=== PATIENT | male | born 1980 | race Caucasian/White ===

== ENCOUNTER 2021-10-17 12:57 | Emergency (ER) | payer BC ==
[~2021-10-17] VITALS: Ht 170.2 cm; Wt 87.7 kg
[2021-10-17] MEDS ORDERED: fentaNYL PF VIAL 100 MCG/2 ML VIAL IVP ONE (16:45)
[2021-10-17] MEDS ORDERED: ONDANSETRON PF 4 MG/2 ML VIAL. IVP ONE (16:45)
--- NOTE | 2021-10-17 16:54 | PHYS DOC ---
Past Medical History Past Medical History: Diverticulitis (KRISHNA KLINE APRN) Past Surgical History: Other Additional Past Surgical Histo: FOOT (KRISHNA KLINE APRN) Smoking Status: Never Smoker Alcohol Use: Rarely Drug Use: None (KRISHNA KLINE APRN) General Adult EDM: Chief Complaint: ABDOMINAL PAIN HPI: HPI: Patient is a 41-year-old male that presents today with abdominal pain. Patient states for the last 24 hours he has had severe abdominal pain mostly in the left sided, patient states he feels this is because from drinking on Marlene, he says he has had nausea and vomiting associated with that along with blood in his stool and mucus in his stool. But after speaking with the patient further he states that he has had blood in his stool for well over 3 weeks and has had slight abdominal pain as well. Patient states a number of years ago he was diagnosed with diverticulitis, but he moved from [place] to [place] and has not had a GI specialist since that time. Patient states that he feels like the last 24 hours she is also run a fever. Patient denies chest pain or shortness of air. (KRISHNA KLINE APRN) Review of Systems: Review of Systems: Constitutional: fever or chills. [] Eyes: Denies change in visual acuity. [] HENT: Denies nasal congestion or sore throat. [] Respiratory: Denies cough or shortness of breath. [] Cardiovascular: Denies chest pain or edema. [] GI: abdominal pain, nausea, vomiting, bloody stools [] : Denies dysuria. [] Musculoskeletal: Denies back pain or joint pain. [] Integument: Denies rash. [] Neurologic: Denies headache, focal weakness or sensory changes. [] Endocrine: Denies polyuria or polydipsia. [] Lymphatic: Denies swollen glands. [] Psychiatric: Denies depression or anxiety. [] (KRISHNA KLINE APRN) Heart Score: C/O Chest Pain: N/A Risk Factors: Risk Factors: DM, Current or recent (<one month) smoker, HTN, HLP, family history of CAD, obesity. Risk Scores: Score 0 - 3: 2.5% MACE over next 6 weeks - Discharge Home Score 4 - 6: 20.3% MACE over next 6 weeks - Admit for Clinical Observation Score 7 - 10: 72.7% MACE over next 6 weeks - Early Invasive Strategies (KRISHNA KLINE SUPERVISOR HARDBOARD) Current Medications: Current Medications Medications (Trade) Dose Ordered Sig/Dorina Start Time Stop Time Status Last Admin Dose Admin Fentanyl Citrate (Fentanyl 2ml Vial) 50 mcg 1X ONCE 10/17/21 16:45 10/17/21 16:46 DC Iohexol (Omnipaque 300 Mg/ml) 75 ml 1X ONCE 10/17/21 17:00 10/17/21 17:01 Ondansetron HCl (Zofran) 4 mg 1X ONCE 10/17/21 16:45 10/17/21 16:46 DC Sodium Chloride 1,000 ml @ 999 mls/hr 1X ONCE 10/17/21 17:00 10/17/21 18:00 (KRISHNA KLINE APRN) Allergies: Allergies: Allergies Coded Allergies Type Severity Reaction Last Updated Verified No Known Drug Allergies 10/17/21 No (KRISHNA KLINE APRN) Physical Exam: PE: Constitutional: Well developed, well nourished, mild distress, non-toxic appearance. [] HENT: Normocephalic, atraumatic, bilateral external ears normal, oropharynx moist, no oral exudates, nose normal. [] Eyes: PERRLA, EOMI, conjunctiva normal, no discharge. [] Neck: Normal range of motion, no tenderness, supple, no stridor. [] Cardiovascular:Heart rate regular rhythm, no murmur [] Lungs & Thorax: Bilateral breath sounds clear to auscultation [] Abdomen: Bowel sounds hypoactive, pain with palpation on the left abdominal area both upper and lower quadrants. No pulsatile masses or masses noted with palpation. Rectal exam done Hemoccult sent for analysis. Skin: Warm, dry, no erythema, no rash. [] Back: No tenderness, no CVA tenderness. [] Extremities: No tenderness, no cyanosis, no clubbing, ROM intact, no edema. [] Neurologic: Alert and oriented X 3, normal motor function, normal sensory function, no focal deficits noted. [] Psychologic: Affect normal, judgement normal, mood normal. [] (KRISHNA KLINE SUPERVISOR HARDBOARD) Current Patient Data: Labs: Laboratory Tests Test 10/17/21 16:36 10/17/21 16:50 10/17/21 19:16 White Blood Count 3.0 x10^3/uL Red Blood Count 4.47 x10^6/uL Hemoglobin 12.5 g/dL Hematocrit 36.6 % Mean Corpuscular Volume 82 fL Mean Corpuscular Hemoglobin 28 pg Mean Corpuscular Hemoglobin Concent 34 g/dL Red Cell Distribution Width 14.1 % Platelet Count 143 x10^3/uL Neutrophils (%) (Auto) 72 % Lymphocytes (%) (Auto) 10 % Monocytes (%) (Auto) 18 % Eosinophils (%) (Auto) 0 % Basophils (%) (Auto) 0 % Neutrophils # (Auto) 2.2 x10^3/uL Lymphocytes # (Auto) 0.3 x10^3/uL Monocytes # (Auto) 0.6 x10^3/uL Eosinophils # (Auto) 0.0 x10^3/uL Basophils # (Auto) 0.0 x10^3/uL Segmented Neutrophils % 74 % Band Neutrophils % 3 % Lymphocytes % 5 % Monocytes % 18 % Platelet Estimate Adequate Stool Occult Blood Positive Sodium Level 136 mmol/L Potassium Level 4.0 mmol/L Chloride Level 97 mmol/L Carbon Dioxide Level 28 mmol/L Anion Gap 11 Blood Urea Nitrogen 13 mg/dL Creatinine 1.0 mg/dL Estimated GFR (Cockcroft-Gault) 81.9 BUN/Creatinine Ratio 13 Glucose Level 95 mg/dL Calcium Level 8.1 mg/dL Total Bilirubin 0.7 mg/dL Aspartate Amino Transf (AST/SGOT) 36 U/L Alanine Aminotransferase (ALT/SGPT) 69 U/L Alkaline Phosphatase 71 U/L Total Protein 7.6 g/dL Albumin 3.6 g/dL Albumin/Globulin Ratio 0.9 Lipase 50 U/L Urine Collection Type Unknown Urine Color Yellow Urine Clarity Clear Urine pH 6.0 Urine Specific [place] >=1.030 Urine Protein Negative mg/dL Urine Glucose (UA) Negative mg/dL Urine Ketones (Stick) Trace mg/dL Urine Blood Negative Urine Nitrite Negative Urine Bilirubin Negative Urine Urobilinogen Dipstick 0.2 mg/dL Urine Leukocyte Esterase Negative Urine RBC 0 /HPF Urine WBC Occ /HPF Urine Squamous Epithelial Cells Occ /LPF Urine Bacteria 0 /HPF Urine Mucus Slight /LPF Current Medications Medications (Trade) Dose Ordered Sig/Dorina Route PRN Reason Start Time Stop Time Status Last Admin Dose Admin Sodium Chloride 1,000 ml @ 999 mls/hr 1X ONCE IV 10/17/21 17:00 10/17/21 18:00 DC 10/17/21 17:09 Fentanyl Citrate (Fentanyl 2ml Vial) 50 mcg 1X ONCE IVP 10/17/21 16:45 10/17/21 16:46 DC 10/17/21 17:09 Ondansetron HCl (Zofran) 4 mg 1X ONCE IVP 10/17/21 16:45 10/17/21 16:46 DC 10/17/21 17:09 Iohexol (Omnipaque 300 Mg/ml) 75 ml 1X ONCE IV 10/17/21 17:00 10/17/21 17:01 DC 10/17/21 18:32 Ketorolac Tromethamine (Toradol 30mg Vial) 30 mg 1X ONCE IVP 10/17/21 19:30 10/17/21 19:31 DC 10/17/21 19:20 Vital Signs: Vital Signs Date Time Temp Pulse Resp B/P (MAP) Pulse Ox O2 Delivery O2 Flow Rate FiO2 10/17/21 20:02 88 19 106/56 (73) 96 Room Air 10/17/21 19:32 90 22 111/63 (79) 94 Room Air 10/17/21 19:02 92 20 138/81 (100) 95 Room Air 10/17/21 18:41 93 18 138/96 (110) 95 Room Air 10/17/21 18:02 92 30 131/80 (97) 90 Room Air 10/17/21 17:32 92 24 135/80 (98) Room Air 10/17/21 17:09 16 98 10/17/21 17:02 92 19 135/82 (99) 96 Room Air 10/17/21 16:32 98 147/90 (109) 93 Room Air 10/17/21 16:26 100.9 94 20 144/74 (97) 97 Room Air 100.9 Vital Signs Date Time Temp Pulse Resp B/P (MAP) Pulse Ox O2 Delivery O2 Flow Rate FiO2 10/17/21 16:26 100.9 94 20 144/74 (97) 97 Room Air 100.9 (KRISHNA KLINE SUPERVISOR HARDBOARD) EKG: EKG: [] (KRISHNA KLINE SUPERVISOR HARDBOARD) Radiology/Procedures: Radiology/Procedures: REASON: abdominal pain with fever;OMNI 300, 75ML PROCEDURE: CT ABD PELV W/ IV CONTRST ONLY Exam Date: 10/17/2021 6:[address] ABDOMEN+PELVIS W Indication: Reason: abdominal pain with fever;OMNI 300, 75ML / Spl. Instructions: / History: . TECHNIQUE: CT examination of the abdomen and pelvis was performed following the administration of nonionic intravenous contrast. One or more of the following dose reduction techniques were utilized: *Automated exposure control (AEC) *Adjustment of mA and/or kV according to patient size *Use of iterative reconstruction technique *CT scan done according to ALARA, or ALARA/IMAGE GENTLY FINDINGS: The visualized lung bases demonstrate mild dependent atelectasis bilaterally. The liver, gallbladder, spleen, pancreas, adrenal glands and kidneys are normal. Urinary bladder is normal in appearance. There is no bowel obstruction or inflammation. The appendix is normal. As a small fat-containing left inguinal hernia. No significant atherosclerotic calcifications are seen. No lymphadenopathy or ascites is seen. Osseous structures are intact. IMPRESSION: No evidence of acute intra-abdominal pathology. Electronically signed by: Kevin Montoya MD (10/17/2021 7:29 PM) [facility][] (KRISHNA KLINE SUPERVISOR HARDBOARD) Course & Med Decision Making: Course & Med Decision Making Pertinent Labs and Imaging studies reviewed. (See chart for details) [1950 patient informed that laboratory and radiologic [place] results did not show any acute process. Patient does state after speaking with him that he does have a history of internal hemorrhoids, I told him that they may be irritated and I will refer him to Dr. Martinez with GI for further management of this. Patient also states he has been coughing and running a low-grade fever we will test him for COVID-19 with the PCR patient is informed to quarantine until he gets results back. Patient informed to stick with clear liquids for the next 12 to 24 hours then advance to a brat diet then advance as tolerated. Patient verbalizes understanding of discharge instructions and is okay with going home. (KRISHNA KLINE SUPERVISOR HARDBOARD) Dragon Disclaimer: Dragon Disclaimer: This electronic medical record was generated, in whole or in part, using a voice recognition dictation system. (KRISHNA KLINE APRN) Departure Departure Impression: Primary Impression: Abdominal pain Qualified Codes: R10.9 - Unspecified abdominal pain Disposition: HOME / SELF CARE / HOMELESS Condition: STABLE Referrals: IRENE DUPREE MD (PCP) CHAPITO REY MD Patient Instructions: Abdominal Pain (Nonspecific) Additional Instructions: Clear liquid diet for the next 12 to 24 hours, then advance to a brat diet for the next 12 to 24 hours and then advance as tolerated. Make sure you stay well- hydrated while feeling unwell. Tylenol and/or ibuprofen as needed for fever and pain. Follow-up with your primary care physician or GI specialist this week for furthe r management of your abdominal pain. Return to the emergency department for increased abdominal pain. Increased blood in your stool, or any other concerns you may have. You have been tested for or diagnosed with COVID-19. It is an infection caused by a new type of coronavirus. COVID-19 will cause cold-like or mild flu symptoms in most. It can cause more severe symptoms like problems breathing in some. There is no treatment for COVID-19. The body will clear the infection over time. Self-care will help to ease discomfort. Steps to Take: Self-Care Rest as needed. Healthy habits may help you feel better. Steps include: Choose healthy foods including fruits and vegetables. Drink water throughout the day. Get plenty of sleep each night. If you smoke, try to quit. It may ease breathing. Avoid alcohol. Keep Others Healthy The virus can spread to others. Droplets are released every time you sneeze or cough. The droplets can get into the mouth, nose, or eyes of people near you and lead to infection. To lower the chances of spreading COVID-19 to others: Stay at home until your doctor has said it is safe to leave. If you tested positive this will mean staying isolated until both of the following are true: At least 10 days have passed since the start of illness. You are free of fever for at least 72 hours without the use of medicine. During this time: - Avoid public areas, events, or transportation. Do not return to work or school until your doctor has said it is safe to do so. - Call ahead if you need to go to a medical center. Let them know you may have COVID-19. It will help them guide you where to go. They may also ask you to wear a facemask when you come to the office. - If you call for emergency medical services, let them know you may have COVID-19. While at home: - Try to avoid close contact with others. Stay about 6 feet away. - If possible, spend most of your time in a separate room from others. - Use a face mask if you will be in close contact with others such as sharing a room or vehicle. - Have someone wipe down common surfaces in the home. Use household wire communications engineer every day on areas like doorknobs, counters, or sinks. - Cough or sneeze into a tissue. Throw the tissue away right after use. If a tissue is not available, cough or sneeze into your elbow. - Wash your hands often. Wash them after sneezing or coughing. Use soap and water and wash for at least 20 seconds. Alcohol based hand cleaner and polisher can be used if soap and water is not available. - Do not prepare food for others. Avoid sharing personal items like forks, spoons, or toothbrushes. - Avoid close contact with pets while you are sick. There is no evidence of the virus passing to pets. This is a safety step until more is known about this virus. Isolation can be frustrating. Social interaction can help. Keep in touch with friends and family through phone and tech options. You can still interact with others in your home, just keep a safe distance of about 6 feet. Follow-up: Your doctors office will check in with you to see if there are any changes in your health. You may be asked to keep track of symptoms to share with them. They will also let you know when you are clear to be in public again. Problems to Look Out For: Contact your doctor if your recovery is not going as you expect. Get emergency care if you have problems such as: - Trouble breathing - Nonstop chest pain or pressure - Changes in awareness, confusion, or problems waking - Lips or face have bluish color - Worsening of symptoms If you think you have an emergency, call for emergency medical services right away. As taken from [facility] Attending Signature Attending Signature I have reviewed the PA/WARE CARRIER's note and plan of care. I was available for consultation as needed during the patient's visit in the emergency department. I agree with the clinical impression, plan, and disposition. (CLARICE EVANS DO) KRISHNA KLINE APRN Oct 17, 2021 16:54 CLARICE EVANS DO Oct 18, 2021 00:31
[2021-10-17] MEDS ORDERED: IOHEXOL 300 MG/ML 100ML VIAL. IV ONE (17:00)
[2021-10-17] MEDS ORDERED: IV NORMAL SALINE 1000ML BAG 1,000 ML IV ONE (17:00)
[2021-10-17 17:11] LABS: FECAL OB PT POSITIVE (NEG)
[2021-10-17 17:17] LABS: BASO % 0 % (0-3); EOS % 0 % (0-3); HEMATOCRIT 36.6 % (39.0-53.0); HEMOGLOBIN 12.5 g/dL (13.0-17.5); LYMPH # 0.3 x10^3/uL (1.0-4.8); LYMPH % 10 % (24-48); MEAN CORPUSCULAR HEMOGLOBIN 28 pg (25-35); MEAN CORPUSCULAR HGB CONC 34 g/dL (31-37); MEAN CORPUSCULAR VOLUME 82 fL (79-100); MONO # 0.6 x10^3/uL (0.0-1.1); MONO % 18 % (0-9); NEUT # 2.2 x10^3/uL (1.8-7.7); NEUT % 72 % (31-73); PLATELET COUNT 143 x10^3/uL (140-400); RED BLOOD COUNT 4.47 x10^6/uL (4.30-5.70); RED CELL DISTRIBUTION WIDTH 14.1 % (11.5-14.5)
[2021-10-17 17:27] LABS: CALCIUM 8.1 mg/dL (8.5-10.1); GFR 81.9
[2021-10-17 17:32] LABS: ALBUMIN 3.6 g/dL (3.4-5.0); ALBUMIN/GLOBULIN RATIO 0.9 (1.0-1.7); TOTAL BILIRUBIN 0.7 mg/dL (0.2-1.0); TOTAL PROTEIN 7.6 g/dL (6.4-8.2)
[2021-10-17 17:49] LABS: % BANDS 3 % (0-9); % LYMPHS 5 % (24-48); % MONOS 18 % (0-10); % SEGS 74 % (35-66)
[2021-10-17 17:51] LABS: PLT ESTIMATE ADEQUATE (ADEQUATE)
[2021-10-17 19:23] LABS: BILIRUBIN,URINE NEGATIVE (NEG); CLARITY,URINE CLEAR; COLOR,URINE YELLOW; NITRITE,URINE NEGATIVE (NEG); PROTEIN,URINE NEGATIVE (NEG-TRACE); UROBILINOGEN,URINE 0.2 mg/dL (0.2 mg/dL)
[2021-10-17 19:28] LABS: BACTERIA,URINE 0 /HPF (0-FEW); RBC,URINE 0 /HPF (0-2); WBC,URINE OCC /HPF (0-4)
[2021-10-17] MEDS ORDERED: KETOROLAC 30 MG/ML VIAL. IVP ONE (19:30)
--- NOTE | 2021-10-17 19:32 | RAD ---
Exam Date: 10/17/2021 6:[address] ABDOMEN+PELVIS W Indication: Reason: abdominal pain with fever;OMNI 300, 75ML / Spl. Instructions: / History: . TECHNIQUE: CT examination of the abdomen and pelvis was performed following the administration of no nionic intravenous contrast. One or more of the following dose reduction techniques were utilized: *Automated exposure control (AEC) *Adjustment of mA and/or kV according to patient size *Use of iterative reconstruction technique *CT scan done according to ALARA, or ALARA/IMAGE GENTLY FINDINGS: The visualized lung bases demonstrate mild dependent atelectasis bilaterally. The liver, gallbladder, spleen, pancreas, adrenal glands and kidneys are normal. Urinary bladder is normal in appearance. There is no bowel obstruction or inflammation. The appendix is normal. As a small fat-containing le ft inguinal hernia. No significant atherosclerotic calcifications are seen. No lymphadenopathy or ascites is seen. Osseous structures are intact. IMPRESSION: No evidence of acute intra-abdominal pathology. Electronically signed by: Kevin Montoya MD (10/17/2021 7:29 PM) [facility]
[2021-10-17 20:02] VITALS: BP 106/56
--- NOTE | 2021-10-19 16:20 | NUR ---
IP:Attempted to contact pt concerning covid results. No answer, left a voicemail to return the call Addendum: 10/19/21 at 1751 by LANDON CLEARY RN Pt returned the call. Informed pt of positive covid test and the need to quarantine for 10 days. Pt verbalized understanding.
== END 2021-10-17 20:12 | disposition home or self-care (01) ==
LOC: ER 12:57
DX: U07.1 COVID-19 (principal); R10.32 Left lower quadrant pain; R10.12 Left upper quadrant pain; R11.2 Nausea with vomiting, unspecified
CPT/HCPCS: 36415; 74177; 80053; 81001; 82274; 83690; 85007; 85025; 87040; 96361; 96374; 96375; 99285; J1885; J2405; J3010; J7030; Q9967; U0003; U0005